=== PATIENT | male | born 1960 | race African-American/Black ===

== ENCOUNTER 2019-09-19 09:20 | Emergency (ER) | payer OTHER ==
[~2019-09-19] VITALS: Ht 182.9 cm; Wt 61.2 kg
[2019-09-19 09:32] VITALS: BP 93/66
[2019-09-19] MEDS ORDERED: KETOROLAC TROMETH 60MG/2ML VIAL IM ONE (11:30)
== END 2019-09-19 12:18 | disposition home or self-care (01) ==
LOC: ER 09:26
DX: S29.012A Strain of muscle and tendon of back wall of thorax, initial encounter (principal); E11.9 Type 2 diabetes mellitus without complications; V43.52XA Car driver injured in collision with other type car in traffic accident, initial encounter; Y93.89 Activity, other specified; Y99.8 Other external cause status; Y92.410 Unspecified street and highway as the place of occurrence of the external cause
CPT/HCPCS: 72070; 96372; 99283; J1885

== ENCOUNTER 2020-12-26 19:30 | Emergency (ER) | payer OTHER ==
[~2020-12-26] VITALS: Ht 182.9 cm; Wt 90.7 kg
[2020-12-26] MEDS ORDERED: IBUPROFEN 800 MG TAB PO ONE (21:45)
[2020-12-26 22:09] VITALS: BP 129/93
== END 2020-12-26 22:32 | disposition home or self-care (01) ==
LOC: ER 19:31
DX: S60.511A Abrasion of right hand, initial encounter (principal); S66.911A Strain of unspecified muscle, fascia and tendon at wrist and hand level, right hand, initial encounter; S86.912A Strain of unspecified muscle(s) and tendon(s) at lower leg level, left leg, initial encounter; S93.401A Sprain of unspecified ligament of right ankle, initial encounter; Y08.89XA Assault by other specified means, initial encounter; Y93.89 Activity, other specified; Y92.89 Other specified places as the place of occurrence of the external cause; Y99.8 Other external cause status
CPT/HCPCS: 72100; 73130; 73564; 73630